=== PATIENT | female | born 1945 | race Two or more races ===

== ENCOUNTER 2025-02-11 12:31 | Emergency (ER) | payer OTHER ==
[~2025-02-11] VITALS: Ht 167.6 cm; Wt 68.0 kg
--- NOTE | 2025-02-11 12:43 | ED.PDOC ---
Shai. trauma (HPI) HPI Comments This is a 79 year old female WALTER presenting to the ED with chief complaint of left shoulder pain. Patient reports that she had been at home when she slipped and tripped on her carpet, causing her to fall on her left side and hit the left side of her head on the corner of a TV stand. Patient relays that she now has 10/10 pain to her left shoulder and left side of head. EMS states patient was given 1g of Tylenol en route to the ED. Patient denies any blood thinner use, dizziness, N/V, LOC, numbness, or weakness. 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 Family History Family History: Reviewed,noncontributory to illness Social History Smoker: Non-Smoker Alcohol: Denies ETOH Use Drugs: Denies Drug Use Lives In: Home Constitutional: denies: chills, diaphoresis, fatigue, fever, malaise, sweats, weakness, others EENTM: denies: blurred vision, double vision, ear bleeding, ear discharge, ear drainage, ear pain, ear ringing, eye pain, eye redness, hearing loss, mouth pain, mouth swelling, nasal discharge, nose bleeding, nose congestion, nose pain, photophobia, tearing, throat pain, throat swelling, voice changes, others Respiratory: denies: cough, hemoptysis, orthopnea, SOB at rest, shortness of breath, SOB with excertion, stridor, wheezing, others Cardiovascular: denies: chest pain, dizzy spells, diaphoresis, Dyspnea on exertion, edema, irregular heart beat, left arm pain, lightheadedness, palpitations, PND, syncope, others Gastrointestinal: denies: abdomen distended, abdominal pain, blood streaked bowels, constipated, diarrhea, dysphagia, difficulty swallowing, hematemesis, melena, nausea, poor appetite, poor fluid intake, rectal bleeding, rectal pain, vomiting, others Genitourinary: denies: abnormal vagina bleeding, burning, dyspareunia, dysuria, flank pain, frequency, hematuria, incontinence, pain, , vagina discharge, urgency, others Neurological: reports: headache; denies: dizziness, fainting, left sided numbness, left sided weakness, numbness, paresthesia, pre-existing deficit, right sided numbness, right sided weakness, seizure, speech problems, tingling, tremors, weakness, others Musculoskeletal: reports: others (Lt shoulder pain); denies: back pain, gout, joint pain, joint swelling, muscle pain, muscle stiffness, neck pain Integumetry: denies: bruises, change in color, change in hair/nails, dryness, laceration, lesions, lumps, rash, wounds, others Allergic/Immunocompromised: denies: Difficulty Healing, Frequent Infections, Hives, Itching, others Hematologic/Lymphatic: denies: anemia, blood clots, easy bleeding, easy bruising, swollen glands, others Endocrine: denies: excessive hunger, excessive sweating, excessive thirst, excessive urination, flushing, intolerance to cold, intolerance to heat, unexplained weight gain, unexplained weight loss, others Psychiatric: denies: anxiety, bipolar disorder, depression, hopeless, panic disorder, schizophrenia, sleepless, suicidal, others All Other Systems: Reviewed and Negative Physical Exam General Appearance: No Apparent Distress, Normal HEENT: Normal ENT Inspection, Pharynx Normal, TMs Normal Neck: Full Range of Motion, Non-Tender, Normal, Normal Inspection Respiratory: Chest Non-Tender, Lungs Clear, No Accessory Muscle Use, No Respiratory Distress, Normal Breath Sounds Cardiovascular: No Edema, No JVD, No Murmur, No Gallop, Normal Peripheral Pulses, Regular Rate/Rhythm Breast Exam: Deferred Gastrointestinal: No Organomegaly, Non Tender, No Pulsatile Mass, Normal Bowel Sounds, Soft Genitalia: Deferred Pelvic: Deferred Rectal: Deferred Extremities: No calf tenderness, Normal capillary refill, Normal inspection, Normal range of motion, Non-tender, No pedal edema Musculoskeletal : Location: Left Extremity Location: Shoulder Apperance: Normal, Tenderness (Left shoulder abrasion and tenderness) Neurologic: Alert, ear specialist II-XII nml as Tested, No Motor Deficits, Normal Affect, Normal Mood, No Sensory Deficits Cerebellar Function: Normal Reflexes: Normal Skin: Dry, Normal Color, Warm Lymphatic: No Adenopathy Was a procedure done? Was a procedure done?: No Differential Diagnosis Multiple Trauma: Fractures, Contusion, Other (Dislocation) X-Ray, Labs, Meds, VS Vital Signs Date Time Temp Pulse Resp B/P (MAP) Pulse Ox O2 Delivery O2 Flow Rate FiO2 02/11/25 15:39 70 18 123/73 02/11/25 15:31 98.3 70 18 123/73 (90) 97 98.3 02/11/25 14:44 72 18 133/67 02/11/25 14:42 98.3 72 18 133/67 (89) 96 98.3 02/11/25 13:35 98.3 60 20 145/83 (103) 100 98.3 02/11/25 12:38 98.1 61 18 113/59 98 98.1 Current Medications Medications (Trade) Dose Ordered Sig/Colleen Route Start Time Stop Time Status Last Admin Sodium Chloride 1,000 ml @ 1,000 mls/hr Q1H ONCE IV 02/11/25 12:45 02/11/25 13:44 DC 02/11/25 14:44 Morphine Sulfate 4 mg ONCE ONCE IV 02/11/25 12:45 02/11/25 12:46 DC 02/11/25 14:44 Ondansetron HCl (Zofran) 4 mg ONCE ONCE IV 02/11/25 12:45 02/11/25 12:46 DC 02/11/25 14:43 Time of 1ST Reevaluation: 13:39 Reevaluation 1ST: Unchanged Patient Education/Counseling: Diagnosis, Treatment Family Education/Counseling: No Family Present Departure 1 Departure Time of Disposition: 16:22 (Patient with a proximal humerus fracture. We will discharge patient home with outpatient follow up) Impression: Primary Impression: Left humeral fracture Disposition: 01 HOME / SELF CARE / HOMELESS Condition: Stable Referrals: BENNIE PISANO MD Additional Instructions: You have a left humerus fracture. Fortunately your CT head was negative. You were placed in a sling. You were referred to orthopedics. Please call for an appointment this week. These fractures usually heal fairly well. For pain you can take the followinam: Ibuprofen 400mg with food Noon: Acetaminophen 1000mg 4pm: Ibuprofen 400mg with food 8pm: Acetaminophen 1000mg You should follow up with your regular doctor within one week to ensure you are doing better. If your symptoms worsen or you have any other concerns then please return to the ER. Discharged With: Self Critical Care Note Critical Care Time?: No Stability Stability form required: No Heart Score Heart Score: Heart Score Response (Comments) Value History N/A 0 EKG N/A 0 Age N/A 0 Risk Factors N/A 0 Troponin N/A 0 Total 0 I personally scribed for SMILEY PICKARD MD ([email or web address]) on 02/11/25 at 12:43. Electronically submitted by Christopher Huffman ([email or web address]). SMILEY PICKARD MD Feb 11, 2025 12:43
--- NOTE | 2025-02-11 13:21 | DVH ---
XY L SHOULDER 2+ VIEW XRAY INDICATION: fall TECHNICAL DATA: 3 views were obtained of the left shoulder. COMPARISON: None FINDINGS: Displaced humeral head fracture probably at the greater tuberosity. The glenohumeral joint is normally maintained. The acromioclavicular joint appears normal. The humeral head is not high riding. Adjacent soft tissues are within normal limits. Degenerative changes are noted involving the visualized spine. IMPRESSION: Displaced humeral head fracture probably at the greater tuberosity.
--- NOTE | 2025-02-11 13:23 | DVH ---
XY L HUMERUS XRAY, INDICATION: fall TECHNICAL DATA: Frontal and lateral views were obtained of the left humerus. COMPARISON: XY L SHOULDER 2+ VIEW XRAY on DOS: 02/11/25 FINDINGS: Displaced humeral head fracture probably at the greater tuberosity. Soft tissues are normal. IMPRESSION: Displaced humeral head fracture probably at the greater tuberosity.
--- NOTE | 2025-02-11 13:42 | DVH ---
CT HEAD WITHOUT CONTRAST INDICATION: fall EXAM DATE: 02/11/2025 12:49 PM COMPARISON: None RADIATION DOSE: CTDIvol: 58 mGy, DLP: 1025 mGy*cm PROCEDURE: CT scans of the head were obtained from the vertex to the skull base. Sagittal and coronal reconstructions were provided. All CT scans at this medical facility are performed using dose modulation techniques as appropriate to a performed exam including the following: Automated exposure control was utilized; adjustment of the MA and/or KV according to patient size; and use of iterative reconstruction technique. FINDINGS: There is sulcal and ventricular prominence. The brainshows normal morphology and osuna-white matter differentiation, without intracranial hemorrhage, extra-axial fluid collection, mass effect or acute large vessel infarct. The ventricles are normal in size. The basal cisterns are patent. The skull and visible facial bones are intact. The paranasal sinuses, mastoid air cells and middle ear cavities are well-aerated. Small left frontal scalp laceration. IMPRESSION: No acute intracranial abnormality.
[2025-02-11] MEDS: ONDANSETRON HCL 4 MG/2 ML VIAL IV ONE (14:43)
[2025-02-11] MEDS: SODIUM CHLORIDE 0.9% 1,000 ML IV ONE (14:44)
[2025-02-11] MEDS: MORPHINE SULFATE 4 MG/ML SYR/VIAL IV ONE (14:44)
[2025-02-11 15:31] VITALS: TEMP 98.3; O2SAT 97
[2025-02-11 15:39] VITALS: BP 123/73; PULSE 70; RESP 18
== END 2025-02-11 17:06 | disposition home or self-care (01) ==
LOC: EDBD 12:31 → ER 12:31
DX: S42.292A Other displaced fracture of upper end of left humerus, initial encounter for closed fracture (principal); E11.9 Type 2 diabetes mellitus without complications; R42 Dizziness and giddiness; W01.0XXA Fall on same level from slipping, tripping and stumbling without subsequent striking against object, initial encounter; Y93.89 Activity, other specified; Y92.009 Unspecified place in unspecified non-institutional (private) residence as the place of occurrence of the external cause; Y99.8 Other external cause status
CPT/HCPCS: 70450; 73030; 73060; 96361; 96374; 96375; 99285; J2270; J2405; J7030